=== PATIENT | female | born 1990 | race Caucasian/White ===

== ENCOUNTER 2018-10-11 17:15 | Outpatient (CLI) | payer OTHER ==
[2018-10-11 20:31] LABS: ADD UMIC YES; UR ASCORBIC ACID NEGATIVE (NEGATIVE); UR BILIRUBIN (Dip) NEGATIVE (NEGATIVE); UR BLOOD (Dip) NEGATIVE (NEGATIVE); UR CALCIUM OXALATE CRYSTAL FEW /HPF (NONE SEEN); UR CLARITY SLIGHTLY CLOUDY (CLEAR); UR COLOR YELLOW (YELLOW); UR GLUCOSE (Dip) 3+ mg/dL (NEGATIVE); UR KETONES (Dip) TRACE mg/dL (NEGATIVE); UR LEUKOCYTE ESTERASE (Dip) 1+ Leu/ul (NEGATIVE); UR NITRITE (Dip) NEGATIVE (NEGATIVE); UR RBC 4 /HPF (0-5); UR SPECIFIC GRAVITY (Dip) 1.028 (1.003-1.030); UR SQUAMOUS EPITHELIAL CELL MANY /HPF (FEW); UR TOTAL PROTEIN (Dip) NEGATIVE (NEGATIVE); UR UROBILINOGEN (Dip) NEGATIVE (NEGATIVE); UR WBC 10 /HPF (0-5)
== END 2018-10-11 21:20 | disposition home or self-care (01) ==
LOC: OBT 17:15 → L-D 17:16
DX: O26.892 Other specified pregnancy related conditions, second trimester (principal); Z3A.21 21 weeks gestation of pregnancy; N89.8 Other specified noninflammatory disorders of vagina
CPT/HCPCS: 76815; 76817; 81001